=== PATIENT | female | born 1995 | race Caucasian/White ===

== ENCOUNTER 2016-11-17 12:55 | Emergency (ER) | payer SELFPAY ==
[~2016-11-17] VITALS: Ht 160 cm; Wt 47.6 kg
[2016-11-17 13:08] VITALS: BP 119/70
== END 2016-11-17 13:41 | disposition home or self-care (01) ==
LOC: ER 12:57
DX: S30.851A Superficial foreign body of abdominal wall, initial encounter (principal); Z88.2 Allergy status to sulfonamides; X58.XXXA Exposure to other specified factors, initial encounter; Y93.89 Activity, other specified; Y92.89 Other specified places as the place of occurrence of the external cause; Y99.8 Other external cause status
CPT/HCPCS: 99284; A4606; Z7610